=== PATIENT | male | born 1945 | race Caucasian/White ===

== ENCOUNTER → 2023-04-13 11:44 | Outpatient (REF) | payer MEDICARE, BC, SELFPAY ==
[2023-04-13 13:08] LABS: ALT (SGPT) 24 U/L (0-50); AST (SGOT) 32 U/L (17-59); Albumin 3.8 g/dl (3.5-5.0); Alkaline Phosphatase 73 U/L (38-126); Direct Bilirubin 0.4 mg/dl (0.0-0.4); HDL Cholesterol 60 mg/dl; LDL Cholesterol, Calculated 71 mg/dl; Total Cholesterol 148 mg/dl (50-199); Total Protein 6.3 g/dl (6.3-8.2); Triglyceride 87 mg/dl (10-149); Very Low Density Lipoprotein 17 mg/dl (0-30)
== END ==
LOC: REG 11:44
PROVIDERS: ATTENDING PHYSICIAN Internal Medicine; REFERRING PHYSICIAN Nurse Practitioner Psychiatric/Mental Health
DX: E78.5 Hyperlipidemia, unspecified (principal); I10 Essential (primary) hypertension
CPT/HCPCS: 36415; 80061; 80076

== ENCOUNTER → 2023-05-28 07:42 | Outpatient (REF) | payer MEDICARE, BC, SELFPAY ==
[2023-05-28 08:57] LABS: Prolactin 15.4 ng/ml (3.7-17.9)
== END ==
LOC: REG 07:42
PROVIDERS: ATTENDING PHYSICIAN Internal Medicine
DX: N52.9 Male erectile dysfunction, unspecified (principal)
CPT/HCPCS: 36415; 84146; 84403

== ENCOUNTER → 2023-10-14 10:29 | Outpatient (REF) | payer MEDICARE, BC, SELFPAY ==
[2023-10-14 11:47] LABS: % Basophils 0.5 % (0-2); % Eosinophils 2.1 % (0-6); % Immature Granulocytes 0.7 % (0-0.5); % Lymphocytes 22.1 % (20.5-51.1); % Monocytes 8.6 % (1.7-9.3); Absolute Basophils 0.1 10^3/uL (0-0.2); Absolute Eosinophils 0.2 10^3/uL (0-0.7); Absolute Immature Granulocytes 0.1 10^3/uL (0-0.05); Absolute Lymphocytes 2.1 10^3/uL (1.2-3.4); Absolute Monocytes 0.8 10^3/uL (0.1-0.6); Absolute Neutrophils 6.4 10^3/uL (1.4-6.5); Hematocrit 38.3 % (39.0-52.0); Hemoglobin 13.5 g/dL (13.0-18.0); Mean Corp Hgb Conc. 35.2 g/dL (33.0-37.0); Mean Corpuscular Hgb 31.5 pg (27.0-31.0); Mean Corpuscular Volume 89.5 fL (80.0-94.0); Mean Platelet Volume 9.2 fL (7.4-10.4); Nucleated Red Blood Cells % 0 % (-); Platelet Count 190 10^3/uL (130-400); Red Blood Cell Count 4.28 10^6/uL (4.70-6.10); White Blood Cell Count 9.7 10^3/uL (4.8-10.8)
[2023-10-14 12:09] LABS: ALT (SGPT) 26 U/L (0-50); AST (SGOT) 28 U/L (17-59); Albumin 3.9 g/dl (3.5-5.0); Alkaline Phosphatase 78 U/L (38-126); Blood Urea Nitrogen 21 mg/dl (9-20); Calcium 9.3 mg/dl (8.4-10.2); Carbon Dioxide 30 mmol/L (22-30); Chloride 103 mmol/L (98-107); Glucose 95 mg/dl (70-99); HDL Cholesterol 61 mg/dl; LDL Cholesterol, Calculated 72 mg/dl; Potassium 4.4 mmol/L (3.5-5.1); Sodium 137 mmol/L (135-145); Total Bilirubin 0.7 mg/dl (0.2-1.3); Total Cholesterol 146 mg/dl (50-199); Total Protein 6.2 g/dl (6.3-8.2); Triglyceride 65 mg/dl (10-149); Very Low Density Lipoprotein 13 mg/dl (0-30); eGFR > 60.00
[2023-10-14 12:39] LABS: PSA, Total - Screen 0.35 ng/ml (0.0-4.0); TSH 1.13 uIU/ml (0.47-4.68)
== END ==
LOC: REG 10:29
PROVIDERS: ATTENDING PHYSICIAN Internal Medicine
DX: Z00.01 Encounter for general adult medical examination with abnormal findings (principal); E78.5 Hyperlipidemia, unspecified; I10 Essential (primary) hypertension; Z12.5 Encounter for screening for malignant neoplasm of prostate
CPT/HCPCS: 36415; 80053; 80061; 84443; 85025; G0103

== ENCOUNTER 2024-04-13 07:16 | Inpatient (IN) | payer MEDICARE, BC, SELFPAY ==
[2024-03-29 14:31] VITALS: BMI 31.1
[2024-03-29 15:12] LABS: Hematocrit 40.2 % (39.0-52.0); Mean Corp Hgb Conc. 34.8 g/dL (33.0-37.0); Mean Corpuscular Hgb 31.8 pg (27.0-31.0); Mean Corpuscular Volume 91.4 fL (80.0-94.0); Mean Platelet Volume 9.3 fL (7.4-10.4); Platelet Count 233 10^3/uL (130-400); Red Cell Dist. Width 13.7 % (11.5-14.5); White Blood Cell Count 6.3 10^3/uL (4.8-10.8)
[2024-03-29 15:43] LABS: ALT (SGPT) 29 U/L (0-50); AST (SGOT) 31 U/L (17-59); Albumin 4.1 g/dl (3.5-5.0); Alkaline Phosphatase 76 U/L (38-126); Blood Urea Nitrogen 18 mg/dl (9-20); Calcium 9.1 mg/dl (8.4-10.2); Carbon Dioxide 26 mmol/L (22-30); Chloride 102 mmol/L (98-107); Estimated Creatinine Clearance 57 ml/min; Glucose 93 mg/dl (70-99); Potassium 4.8 mmol/L (3.5-5.1); Sodium 137 mmol/L (135-145); Total Bilirubin 0.7 mg/dl (0.2-1.3); Total Protein 6.6 g/dl (6.3-8.2); eGFR > 60.00
[2024-03-30 08:32] LABS: Glycohemoglobin (HgbA1c) 5.1 % (4.0-5.6)
[2024-04-06 11:02] VITALS: BMI 31.1
[2024-04-13] VITALS (20 sets, daily range): BP systolic 108–147; BP diastolic 69–85; PULSE 87; O2SAT 99
--- NOTE | 2024-04-13 07:36 | W.PN.UPDATE ---
Update Note
Progress Note Update
L knee OA s/p L TKA w/ Dr Mascorro 04/13/24
DVT prophylaxis - ASA, b/l venous foot pumps
HTN - + parameters - monitor BP
ALEXANDR - monitor O2
- Order CPAP HS
- IS
GERD, Lee's esophagus, and Erosive esophagitis - continue PPI therapy
- Minimize NSAIDs as able
BPH - monitor voids
- Continue Flomax
HLD
Colon polyps
Fatty liver disease
Nephrolithiasis
Remote hepatitis, unknown type
Insomnia
Anxiety
Depression
Pain meds already Rx'd by [facility]
[2024-04-13] MEDS: TYLENOL 650 MG PO ×5 (07:41→23:40)
[2024-04-13] MEDS: CELEBREX 200 MG PO (07:42)
[2024-04-13] MEDS: NORMOSOL-R/PLASMALYTE-A 1000 IV ×2 (07:43→13:30)
[2024-04-13] MEDS: DILAUDID 0.5 MG IV (12:29)
[2024-04-13] MEDS: ROXICODONE 5 MG PO (12:33)
--- NOTE | 2024-04-13 13:34 | PTCARENOTE ---
Pt arrived to 2S in bed. Full assessment completed. LLE with decreased movement, neurovascular assessment otherwise WDL. L knee DSG C/D/I. IVF initiated. Pt instructed to ring for assistance getting OOB, verbalized understanding. Bed locked and in
the lowest position, safety maintained. Oriented to room and call molina.
[2024-04-13] MEDS: WELLBUTRIN XL (24 hour extended release) 300 MG PO (14:07)
[2024-04-13] MEDS: VITAMIN D3 (cholecalciferol) 25 MCG PO (14:07)
[2024-04-13] MEDS: BUSPAR 10 MG PO (14:07)
[2024-04-13] MEDS: VITAMIN C 500 MG PO (14:07)
[2024-04-13] MEDS: LIPITOR 10 MG PO (14:07)
[2024-04-13] MEDS: PROTONIX 40 MG PO (14:07)
[2024-04-13] MEDS: NORVASC PO (14:08)
--- NOTE | 2024-04-13 16:39 | OR.RPT ---
Addendum entered and electronically signed by Lakhwinder Mascorro MD 04/13/24 16:41:
Note, the tourniquet was let down after 5 minutes due to bleeding after incision consistent with venous tourniquet. Meticulous hemostasis was maintained throughout the case.
Original Note:
Operative Report
Operative Report
Orthopaedic Surgery Operative Note
DATE OF OPERATION: 04/13/2024
PREOPERATIVE DIAGNOSES: Osteoarthritis, left knee.
POSTOPERATIVE DIAGNOSES: Osteoarthritis, left knee.
OPERATION PERFORMED:
1) Left total knee arthroplasty (CPT 24035)
2) Intraosseous administration of analgesic (CPT 85921)
SURGEON: Lakhwinder Mascorro MD
ASSISTANTS: Juanito FELDER who helped with patient and limb positioning and retraction
ANESTHESIA: Spinal by anesthesia plus intraoperative infusion of morphine into the tibial metaphysis by Dr. Mascorro
COMPLICATIONS: None.
ESTIMATED BLOOD LOSS: 100mL
DRAINS: None
TOURNIQUET TIME: 5 minutes.
IMPLANTS:
- Emre Persona CR Femur, size 7
- Emre Persona tibia base plate, size E
- Emre Persona ultracongruent articular surface, 10 mm
- DJO [place] bone cement
INDICATIONS: The patient presented to my office with debilitating left knee pain due to osteoarthritis. We reviewed the natural history of this problem, as well as the risks, benefits, and alternatives of various treatment options. The patient
exhausted all nonoperative treatment options and wished to proceed with knee replacement surgery. The patient understood the risks which included, but were not limited to, bleeding, infection, failure to relieve pain, more pain than preop, damage to
blood vessels and nerves, need for reoperation, mechanical failure of the implants, wound healing problems, stiffness, instability, blood clot, pulmonary embolism, myocardial infarction, pneumonia, arrhythmia, CVA, and . The patient accepted
these risks and wished to proceed. All questions were answered, and informed consent was obtained.
PROCEDURE IN DETAIL: The patient was identified in the preoperative holding area. The left knee was identified as the operative site. The patient was taken in the operating room and placed in a supine position on the operating table. Spinal
anesthesia was performed. IV antibiotics and tranexamic acid were administered. An SCD was placed on the right lower extremity. A well-padded tourniquet was placed on the proximal thigh. All bony prominences were well padded. The left lower
extremity was prepped and draped in the usual sterile fashion.
We performed a surgical time-out. An interarticular block was performed with local anesthetic with epinephrine. The limb was exsanguinated with an Esmarch bandage, then the tourniquet was inflated to 250 mmHg. I performed interosseous administration
of morphine-saline solution via a Jamshidi style intraosseous needle into the proximal medial tibial metaphysis as described by Filipe Olivas MD. This was performed to aid in pain control. A midline skin incision was made followed by a medial
parapatellar arthrotomy. A subperiosteal peel was performed on the medial tibia. I excised part of the infrapatellar fat pad to improve our visualization as well as tissue over anterior femur. The patella was everted and the knee was flexed. I
excised the remnants of the anterior and posterior cruciate ligaments as well as tibial and femoral osteophytes with rongeurs.
The knee was flexed, and the extramedullary tibial cutting guide was aligned. [place] was aligned at neutral, rotation was centered on the tibial tubercle, and coronal alignment was aligned with the mechanical axis of the tibia and center of the ankle
joint. The cut height was 10mm off the lateral tibia joint surface. The guide was secured into place. The MCL and LCL were protected. The tibia surface was cut. The cut surface was inspected after removal to ensure appropriate height and slope based
on the preoperative plan. The cut was checked with a drop jeffery. It was centered nicely at the ankle.
A drill was used to open the femoral canal. The intramedullary distal femoral cutting guide was inserted into the femur. This was set at 5 degrees +1. This was secured into place with three pins. The cut level was checked with an johnny wing. The
distal femur was cut through the cutting guide. The IM guide was reinserted to double check that the level of resection was flush and in appropriate alignment.
Kitty's line and the transepicondylar axis were marked on the femur. The femoral sizing guide was applied to the anterior femur. Pins were inserted, and the 4-in-1 cutting guide was applied and secured into place. The rotation was compared to
Kitty's line, the transepicondylar axis, and the neutral tibia cut and was found to be appropriate. The width was checked and found to be appropriate and lateralized on the femur. The anterior, posterior, and chamfur cuts were made. A lamina
human anatomy teacher was used to open the flexion gap, and posterior osteophytes were removed with a curved osteotome. These were extensive. The remnant medial and lateral meniscus were also removed. I prophylactically cauterized the lateral geniculate
arteries. A 10mm spacer block was applied to the flexion gap and was noted to be balanced medially and laterally. The knee was extended, and the block showed symmetric to extension and flexion gaps.
The tibia was exposed and sized. Rotation was set in line with the tibial tubercle and congruent with the femur. The trial was secured into place with two pins. The trial femur was impacted into place, and a trial articular surface was placed. The
knee was taken through range of motion and noted to be stable throughout the arc of motion without gaping or excess tension. The patella tracked centrally throughout the arc of motion without need for further releases. No full thickness cartilage
defects.
The trials were removed. The tibia keel was prepared with the punch and the drill. The bone surfaces were irrigated with sterile saline and dried. The cement was mixed in a vacuum mixer. Cement gun was used to apply cement to the tibial surface and
the undersurface of the tibial implant. Cement was pressurized into the tibial canal and tibia surface. The tibial component was impacted into place. Excess cement was removed. Cement was applied to the femoral surface and the femoral component. The
femoral component was impacted into place, and excess cement removed. A trial articular surface was inserted, and the knee was extended while the cement polymerized. The tourniquet was let down, and meticulous hemostasis was achieved. Dilute
betadine was poured into the wound and allowed to soak for 3 minutes. The knee was irrigated with copious normal saline.
Once the cement was polymerized, the trial articular surface was removed. Any excess cement was removed. The knee was trialed, and the final articular surface was selected and inserted into the tibial locking mechanism. The knee was reduced. A fresh
drape was applied to the surgical field.
The arthrotomy was closed with 0-PDS. Once closed, an interarticular block was performed with local anesthetic with epi. The deep dermal layer was closed with 2-0 PDS, and the subcuticular skin was closed with 3-0 monocryl. A Dermabond Prineo
dressing was applied to the skin in full flexion. Once this was completely dry, a sterile waterproof dressing was applied.
The anesthesia team performed an adductor canal block in the OR. The patient awoke from anesthesia without any difficulties. The sponge and instrument counts were correct x2 at the end of the case.
Johann Mascorro MD
[2024-04-13] MEDS: ASPIRIN 325 MG PO (17:06)
[2024-04-13] MEDS: ANCEF 5 IV (17:06)
--- NOTE | 2024-04-13 18:26 | RESPNOTE ---
Patient refuses CPAP. He feels he was misdiagnosed and doesn't wear at home.
[2024-04-13] MEDS: SENOKOT PO (20:32)
[2024-04-13] MEDS: DECADRON 4 MG PO (20:33)
[2024-04-13] MEDS: COLACE PO (20:35)
[2024-04-13] MEDS: BACTROBAN 2% OINTMENT 1 APPLIC NASAL (20:35)
[2024-04-13] MEDS: BUSPAR PO (20:35)
[2024-04-13] MEDS: FLOMAX 0.4 MG PO (21:52)
[2024-04-13] MEDS: AMBIEN 10 MG PO (21:54)
[2024-04-14] MEDS: ANCEF 5 IV (01:44)
[2024-04-14 03:15] VITALS: BP 139/76
[2024-04-14] MEDS: TYLENOL 650 MG PO ×2 (03:26→08:21)
[2024-04-14] MEDS: MAALOX 30 ML PO (03:31)
[2024-04-14 06:45] LABS: Hepatitis C Antibody Negative (Negative)
[2024-04-14 07:35] VITALS: BP 145/83
[2024-04-14] MEDS: VITAMIN C 500 MG PO (08:19)
[2024-04-14] MEDS: BUSPAR 10 MG PO (08:19)
[2024-04-14] MEDS: DECADRON 4 MG PO (08:19)
[2024-04-14] MEDS: WELLBUTRIN XL (24 hour extended release) 300 MG PO (08:19)
[2024-04-14] MEDS: BACTROBAN 2% OINTMENT 1 APPLIC NASAL (08:20)
[2024-04-14] MEDS: ASPIRIN 325 MG PO (08:21)
[2024-04-14] MEDS: COLACE 100 MG PO (08:21)
[2024-04-14] MEDS: SENOKOT 17.2 MG PO (08:21)
[2024-04-14] MEDS: NORVASC 5 MG PO (08:22)
[2024-04-14] MEDS: PROTONIX 40 MG PO (08:22)
[2024-04-14] MEDS: LIPITOR 10 MG PO (08:22)
[2024-04-14] MEDS: VITAMIN D3 (cholecalciferol) 25 MCG PO (08:22)
[2024-04-14] MEDS: ROXICODONE 5 MG PO (08:25)
--- NOTE | 2024-04-14 09:35 | W.PN.ORTHO ---
Today's Communication / Plan
-
Await PT and OT recs.
D/c later today if remaining clinically stable.
Assessment
.
Distal Motor Intact: Yes
Dressing:
Clean, dry and intact.
Assessment:
L knee OA s/p L TKA w/ Dr Mascorro 04/13/24
DVT prophylaxis - ASA, b/l venous foot pumps
HTN - + parameters - BPs overall stable
ALEXANDR - O2 stable on RA
- Ordered CPAP HS - pt refused and claimed previously misdiagnosed
- IS
GERD, Lee's esophagus, and Erosive esophagitis - continue PPI therapy
- Maalox providing heartburn relief while inpatient
- Minimize NSAIDs as able
BPH - voiding appropriately w/ Flomax during admission
HLD
Colon polyps
Fatty liver disease
Nephrolithiasis
Remote hepatitis, unknown type
Insomnia
Anxiety
Depression
Pain meds already Rx'd by [facility]
Plan
.
Surgery / Date: L TKA w/ Dr Mascorro 04/13/24
DVT Prophylaxis: Aspirin
Activity:
Out of bed.
PT/OT
Discharge Plan: Home w/ Outpatient PT
Subjective
.
.:
Patient resting comfortably in bed.
L knee pain reportedly well tolerated w/ current pain meds.
Acute on chronic heartburn this AM, relieved w/ Maalox and Protonix.
Eager for potential d/c today.
Vital Signs and Labs
.
Vital Signs and Labs:
Lab Results
03/29/24 13:25
03/29/24 13:25
Temp Pulse Resp BP Pulse Ox
97.9 F 108 16 145/83 96
04/14/24 07:35 04/14/24 07:35 04/14/24 07:35 04/14/24 07:35 04/14/24 07:35
Non-invasive Hgb result: 12.6
Physical Exam
-
HEENT: No pallor, cyanosis, or jaundice. Throat clear.
NECK: Supple. No JVD.
RESPIRATORY: Lungs clear to auscultation.
CVS: S1, S2 normal. RRR.�
ABDOMEN: Soft, non-tender. No distension. Obese.
EXTREMITIES: Expected post-surgical L knee edema. Strength equal, no calf pain with palpation/palpation. Calves soft.
NBA PLAYER: AOx3. No focal deficits. yarn spooler grossly intact
--- NOTE | 2024-04-14 09:42 | W.DS.TRANS ---
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
-
Discharge Instructions:
Sleep Apnea Risk Intermediate
Discharge Diagnosis/Procedures L knee OA s/p L TKA w/ Dr Mascorro 04/13/24
Diet Regular
Activity As tolerated,With Walker
Driving Restrictions Not until seen by your Dr
Bathing Restrictions OK to Shower
Other Services PT
Wound Care Leave dressing on until seen by surgeon's office
for follow-up in 2 weeks.
Instructions:
Stand-Alone Forms: Total Hip/Knee Replacement D/C
Changes to Home Medications: Yes
Discharge Medications:
DC Medications w/original date entered in [facility]
atorvastatin 10 mg tablet 10 mg PO DAILY 07/04/22
bupropion HCl 300 mg 24 hr tablet, extended release 300 mg PO DAILY 07/04/22
omeprazole 20 mg tablet,delayed release 20 mg PO DAILY 07/04/22
ascorbic acid (vitamin C) 500 mg tablet (Vitamin C) 500 mg PO DAILY 04/06/24
buspirone 10 mg tablet 10 mg PO BID 04/06/24
cholecalciferol (vitamin D3) 25 mcg (1,000 unit) capsule (Vitamin D3) 25 mcg PO DAILY 04/06/24
coQ10 (ubiquinol) 100 mg capsule 100 mg PO DAILY 04/06/24
mupirocin 2 % topical ointment 1 applic topical BID 04/06/24
omega-3 fatty acids-fish oil 684 mg-1,200 mg capsule,delayed release 1 cap PO DAILY 04/06/24
tamsulosin 0.4 mg capsule 0.4 mg PO HS 04/06/24
vitamin B complex 1 cap PO DAILY 04/06/24
zolpidem 10 mg tablet 10 mg PO HS 04/06/24
acetaminophen 325 mg tablet 650 mg (2 x 325 mg) PO Q4HWA #60 tabs 04/14/24
amlodipine 5 mg tablet 5 mg PO DAILY #1 tab 04/14/24
aspirin 325 mg tablet 325 mg PO DAILY #30 tabs 04/14/24
celecoxib 100 mg capsule (Celebrex) 100 mg PO BID PRN breakthrough pain #30 caps 04/14/24
dexamethasone 4 mg tablet 4 mg PO Q12H Anti-inflammatory #6 tabs 04/14/24
docusate sodium 100 mg capsule 100 mg PO BID #30 caps 04/14/24
ondansetron HCl 4 mg tablet 4 mg PO Q6H PRN nausea and vomiting #30 tabs 04/14/24
oxycodone 5 mg tablet 5 - 10 mg (1 - 2 x 5 mg) PO Q6H PRN moderate-severe pain #30 tabs 04/14/24
sennosides 8.6 mg tablet (Patsy-ted) 17.2 mg (2 x 8.6 mg) PO BID #30 tabs 04/14/24
Home Medication Changes
acetaminophen 325 mg tablet 650 mg (2 x 325 mg) PO Q4HWA #60 tabs 04/14/24
aspirin 325 mg tablet 325 mg PO DAILY #30 tabs 04/14/24
celecoxib 100 mg capsule (Celebrex) 100 mg PO BID PRN breakthrough pain #30 caps 04/14/24
dexamethasone 4 mg tablet 4 mg PO Q12H Anti-inflammatory #6 tabs 04/14/24
docusate sodium 100 mg capsule 100 mg PO BID #30 caps 04/14/24
ondansetron HCl 4 mg tablet 4 mg PO Q6H PRN nausea and vomiting #30 tabs 04/14/24
oxycodone 5 mg tablet 5 - 10 mg (1 - 2 x 5 mg) PO Q6H PRN moderate-severe pain #30 tabs 04/14/24
sennosides 8.6 mg tablet (Patsy-ted) 17.2 mg (2 x 8.6 mg) PO BID #30 tabs 04/14/24
Pending Results: No
[2024-04-14 09:54] VITALS: BP 122/68; BP 131/80; PULSE 110
[2024-04-14 11:16] VITALS: BP 142/80
--- NOTE | 2024-04-14 11:32 | CM ---
Met with pt at bedside
Reports lives with his in a 2 story home; 1 step to enter, 13 steps to 2nd fl
Independent at baseline, drives
DME - rolling walker, single point cane, raised toilet seat, shower chair
SNF/HH - denies past hx
Has ride at discharge
PCP - Donny Beyer
Pharm - [facility]
Pt for outpatient PT - has appt scheduled at Wednesday at [facility]. Has Transport
Given IMM
Plan - anticipate home no needs
[2024-04-14 11:33] VITALS: BP 142/80
[2024-04-14] MEDS: TYLENOL PO (11:59)
== END 2024-04-14 12:35 | disposition home or self-care (01) | DRG 470 ==
LOC: 2 SOUTH 07:16
PROVIDERS: ADMITTING PHYSICIAN Orthopaedic Surgery; FAMILY PHYSICIAN Internal Medicine
PROC: 0SRD0J9 Replacement of Left Knee Joint with Synthetic Substitute, Cemented, Open Approach (ICD-10-PCS; 2024-04-13)
DX: M17.12 Unilateral primary osteoarthritis, left knee (principal); I10 Essential (primary) hypertension; K21.9 Gastro-esophageal reflux disease without esophagitis; G47.33 Obstructive sleep apnea (adult) (pediatric); Z91.199 Patient's noncompliance with other medical treatment and regimen due to unspecified reason; K22.70 Barrett's esophagus without dysplasia; N40.0 Benign prostatic hyperplasia without lower urinary tract symptoms; Z87.19 Personal history of other diseases of the digestive system
CPT/HCPCS: 36415; 73560; 80053; 83036; 85027; 86803; 87070; 93005; 97110; 97116; 97162; C1713; C1776

== ENCOUNTER → 2024-05-15 07:58 | Outpatient (REF) | payer MEDICARE, BC, SELFPAY ==
[2024-05-15 09:04] LABS: Urine Albumin 1+ (Neg - Trace); Urine Bilirubin Negative (Negative); Urine Character Clear (Clear); Urine Color Yellow; Urine Glucose Negative (Negative); Urine Ketone Negative (Negative); Urine Leukocyte 2+ (Negative); Urine Nitrite Negative (Negative); Urine Occult Blood Negative (Negative); Urine Urobilinogen Negative (Neg - 1+)
[2024-05-15 09:36] LABS: ALT (SGPT) 23 U/L (0-50); AST (SGOT) 27 U/L (17-59); Albumin 3.7 g/dl (3.5-5.0); Alkaline Phosphatase 75 U/L (38-126); Direct Bilirubin 0.1 mg/dl (0.0-0.4); HDL Cholesterol 53 mg/dl; LDL Cholesterol, Calculated 64 mg/dl; Total Bilirubin 0.6 mg/dl (0.2-1.3); Total Cholesterol 134 mg/dl (50-199); Total Protein 5.9 g/dl (6.3-8.2); Triglyceride 88 mg/dl (10-149); Very Low Density Lipoprotein 17 mg/dl (0-30)
[2024-05-15 10:13] LABS: Urine Amorphous Seen
[2024-05-15 10:14] LABS: Urine Granular Cast >15 /LPF (0)
[2024-05-15 10:15] LABS: Urine Red Blood Cell 0-2 /HPF (0-2)
[2024-05-15 10:17] LABS: Urine White Cell 30-40 /HPF (0-5)
[2024-05-15 10:18] LABS: Urine Bacteria Few (Negative)
== END ==
LOC: REG 07:58
PROVIDERS: ATTENDING PHYSICIAN Internal Medicine
DX: E78.5 Hyperlipidemia, unspecified (principal); N39.41 Urge incontinence
CPT/HCPCS: 36415; 80061; 80076; 81003; 81015; 87086

== ENCOUNTER → 2024-10-20 08:15 | Outpatient (REF) | payer MEDICARE, BC, SELFPAY ==
[2024-10-20 09:27] LABS: Hematocrit 38.7 % (39.0-52.0); Hemoglobin 13.4 g/dL (13.0-18.0); Mean Corp Hgb Conc. 34.6 g/dL (33.0-37.0); Mean Corpuscular Volume 90.0 fL (80.0-94.0); Nucleated Red Blood Cells % 0 % (-); Platelet Count 222 10^3/uL (130-400); Red Cell Dist. Width 14.4 % (11.5-14.5)
[2024-10-20 09:47] LABS: ALT (SGPT) 21 U/L (0-50); AST (SGOT) 25 U/L (17-59); Albumin 4.1 g/dl (3.5-5.0); Alkaline Phosphatase 63 U/L (38-126); Blood Urea Nitrogen 24 mg/dl (9-20); Calcium 9.5 mg/dl (8.4-10.2); Carbon Dioxide 28 mmol/L (22-30); Chloride 105 mmol/L (98-107); Glucose 97 mg/dl (70-99); HDL Cholesterol 52 mg/dl; LDL Cholesterol, Calculated 84 mg/dl; Potassium 4.7 mmol/L (3.5-5.1); Sodium 139 mmol/L (135-145); Total Protein 6.7 g/dl (6.3-8.2); Very Low Density Lipoprotein 14 mg/dl (0-30); eGFR > 60.00
== END ==
LOC: REG 08:15
PROVIDERS: ATTENDING PHYSICIAN Internal Medicine
DX: E78.5 Hyperlipidemia, unspecified (principal); E66.3 Overweight; Z00.01 Encounter for general adult medical examination with abnormal findings; Z12.5 Encounter for screening for malignant neoplasm of prostate
CPT/HCPCS: 36415; 80053; 80061; 85025

== ENCOUNTER → 2024-11-13 13:33 | Outpatient (REF) | payer MEDICARE, BC, SELFPAY ==
[2024-11-13 15:35] LABS: PSA, Total - Screen 0.34 ng/ml (0.0-4.0)
== END ==
LOC: REG 13:33
PROVIDERS: ATTENDING PHYSICIAN Internal Medicine
DX: Z00.01 Encounter for general adult medical examination with abnormal findings (principal); Z12.5 Encounter for screening for malignant neoplasm of prostate
CPT/HCPCS: 36415; G0103